=== PATIENT | male | born 1970 | race Caucasian/White ===

== ENCOUNTER 2018-03-08 10:55 | Day surgery (SDC) | payer OTHER ==
[~2018-03-08] VITALS: Ht 188 cm; Wt 158.8 kg
[~2018-03-08 10:55] MED LIST: ALLOPURINOL100 MG PO; AUGMENTIN 875-1 EACH PO; ESZOPICLONE3 MG PO; LISINOPRIL-HCT1 EACH PO; METOPROLOL SUCC50 MG PO; MOBIC15 MG PO; SERTRALINE HCL100 MG PO; VENTOLIN HFA18 GM INH
[2018-03-08] MEDS ORDERED: HYDROCODON-ACE1 EA11 PO (12:34)
[2018-03-08] MEDS ORDERED: DICLOFENAC SODI75 MG PO (12:34)
[2018-03-08] MEDS ORDERED: SENNA LAX8.6 MG PO (12:35)
--- NOTE | 2018-03-08 12:43 | NUR ---
03/08/18 [facility]3 Simran Gloria 1232- PT ARRIVES TO PACU FROM OR ON 10 L VIA ,MASK. PT OPENS EYES AND IS ABLE TO VERBALIZE NO PAIN/NAUSEA. RESP EVEN AND UNLABORED. SATS 99%. SURGICAL DRESING C/D/I. SCDS ON. CMS INTACT ON RLE. 1235- PT DENIES PAIN/NAUSEA. VSS. RA SATS >90%. RESP EVEN AND UNLABORED. PT ENC TO COUGH AND DEEP BREATHE. 1240 - CMS INTACT. PT DENIES TINGLING/NUMBNESS IN RLE. NO PAIN/NAUSEA. RA SATS >90%.
--- NOTE | 2018-03-08 13:17 | NUR ---
PATIENT BACK IN DAY SURGERY ROOM FROM PACU. DENIES PAIN. DENIES NAUSEA. CSM TO RIGHT TOES WNL. RIGHT KNEE DRESSING CDI. GIVEN ICE WATER. SCDs ON. IV SITE WNL. CALL LIGHT WITHIN REACH.
--- NOTE | 2018-03-08 14:13 | NUR ---
PATIENT TOLERATED WATER. EATING SANDWICH. DENIES PAIN.
--- NOTE | 2018-03-08 15:26 | NUR ---
1455: IV DC'D WNL. TIP INTACT. DRESSING APPLIED. DISCHARGE INSTRUCTIONS GIVEN TO PATIENT. PATIENT DISCHARGED TO HOME WITH FRIEND VIA WHEELCHAIR.
--- NOTE | 2018-03-11 08:40 | OR ---
[facility] [address], [place] [address] Signed DATE OF OPERATION: 03/08/2018 SURGEON: Laverne Loaiza MD PREOPERATIVE DIAGNOSIS: Medial meniscus tear, right knee. POSTOPERATIVE DIAGNOSIS: Medial meniscus tear, right knee. PROCEDURE PERFORMED: Right knee arthroscopy with partial medial meniscectomy. ANESTHESIA: General with adductor block. BIODIESEL PRODUCTION ASSOCIATE: None. TOURNIQUET TIME: Zero. BRIEF HISTORY: Jesus is a 47-year-old gentleman with painful locking in his knee. MRI was consistent with a large posterior medial meniscus tear. Risks and benefits of operative treatment were discussed with him, he elected to proceed. Once consent was obtained, he was taken to the operating room. After adequate anesthesia, he was placed on operating room table. The left leg was flexed, abducted, external rotated on a well-padded leg mccloud. The right was placed in well-padded proximal thigh tourniquet and placed in leg mccloud. Portal sites were pre-injected using 0.25% Marcaine with epinephrine under an alcohol prep. The leg was then prepped and draped in a standard sterile fashion. The standard inferior lateral and superior lateral portals were made, and the scope was introduced. ARTHROSCOPIC FINDINGS: Moderate synovitis was noted throughout the knee. 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 The femur was intact. Medial and lateral gutters were clear. ACL was intact. Lateral compartment is intact. Medial compartment showed minimal chondromalacia changes. However, there was a large posterior medial meniscus tear Electronically Signed By: LAVERNE LOAIZA MD 03/11/18 0840 PATIENT NAME: JESUS SCOTT OPERATIVE REPORT DATE OF : 72 REPORT #: [id number] PHYSICIAN: LAVERNE LOAIZA MD PCP: CHANTELLE BLANC REPORT IS CONFIDENTIAL AND NOT TO BE RELEASED WITHOUT AUTHORIZATION [facility] [address], [place] [address] Signed extending up to the mid body. DESCRIPTION OF PROCEDURE: A standard inferomedial portal was made after localization using a spinal needle. The straight and curved biters were then used to trim the meniscus tear back to a stable rim. The shaver was then used to smooth this out further the meniscus anteriorly. The debris was evacuated. Scope was then withdrawn. Portals were closed with 3-0 nylon and the knee was injected with 60 mg Toradol at the end of the case. The wounds were dressed with Adaptic, ABD, and Shaheed wrap. He tolerated the procedure well. All sponge, needle, and instrument counts were correct. Laverne Loaiza MD BA/SUDHAKAR /[id number] Copies: ~ Electronically Signed By: LAVERNE LOAIZA MD 03/11/18 0840 PATIENT NAME: JESUS SCOTT OPERATIVE REPORT DATE OF : 72 REPORT #: [id number] PHYSICIAN: LAVERNE LOAIZA MD PCP: CHANTELLE BLANC REPORT IS CONFIDENTIAL AND NOT TO BE RELEASED WITHOUT AUTHORIZATION
== END 2018-03-08 14:55 | disposition home or self-care (01) ==
LOC: OPS 10:55 → DS 10:55 → OPS 12:00
PROVIDERS: Specialist
PROC: 0SBD4ZZ Excision of Left Knee Joint, Percutaneous Endoscopic Approach (ICD-10-PCS; principal; 2018-03-08 12:00)
DX: S83.241A Other tear of medial meniscus, current injury, right knee, initial encounter (principal); M22.41 Chondromalacia patellae, right knee; G47.33 Obstructive sleep apnea (adult) (pediatric); J45.909 Unspecified asthma, uncomplicated; I10 Essential (primary) hypertension; E66.9 Obesity, unspecified; Z79.1 Long term (current) use of non-steroidal anti-inflammatories (NSAID); Z79.899 Other long term (current) drug therapy
CPT/HCPCS: 01400; 36415; 64447; 76942; 80053; 85025; J0690; J0735; J1100; J1885; J2250; J2405; J2704; J2765; J3010; J7120